=== PATIENT | male | born 1960 | race Caucasian/White ===

== ENCOUNTER 2022-01-09 16:23 | Inpatient (IN) | payer MEDICAID, SELFPAY ==
[~2022-01-09] VITALS: Ht 175.3 cm; Wt 108.9 kg
[~2022-01-09 16:23] MED LIST: ASPI-859 PO; LIP40 PO; LISI2.5T48 PO; METF-518 PO; MULT-1238 PO
[2022-01-09 16:25] VITALS: BP_SYST 173
--- NOTE | 2022-01-09 16:25 | NUR ---
Placed in room H1 . Placed on hydrometallurgical engineer, blood pressure machine and pulse oximeter. To gown for exam. Side rails up.
--- NOTE | 2022-01-09 16:28 | NUR ---
ER DR. EUCEDA AT THE BEDSIDE EXAMINING PT
--- NOTE | 2022-01-09 16:30 | NUR ---
PT BIB FROM HOME C/O LEFT SIDED FACIAL DROOP, SLURRED SPEECH, LEFT ARM AND LEFT LEG WEAKNESS. LKWT 2030 ON 01/08/22. PT IS AAOX4, VSS. PT HAS HX OF SIMILAR SYMPTOMS ON 12/26/21. HX OF DM, HTN
--- NOTE | 2022-01-09 16:45 | NUR ---
# 20 gauge angiocath placed to LAC. Use of asceptic technique. Opsite placed over site. Blood return noted. Blood for lab drawn from site. Flushed with 10 cc of normal saline. No evidence of infiltration noted. Patient tolerated well.
--- NOTE | 2022-01-09 16:50 | NUR ---
Patient transported to radiology via GURNEY, accompanied by STAFF.
[2022-01-09] MEDS ORDERED: IOHEXOL 350 mgI/mL, 150 ML INFUS..BTL IV ONE (16:51)
[2022-01-09 17:33] LABS: BASOPHILS % (AUTO) 0.6 % (0.0-2.0); EOSINOPHILS # (AUTO) 0.1 K/uL (0.0-0.4); EOSINOPHILS % (AUTO) 1.4 % (0.0-4.0); HEMATOCRIT 40.5 % (36-54); HEMOGLOBIN 13.7 g/dL (14.0-18.0); LYMPHOCYTES # (AUTO) 1.6 K/uL (1.0-5.5); LYMPHOCYTES % (AUTO) 28.1 % (20.5-51.5); MEAN CORPUSCULAR HEMOGLOBIN 29 pg (27-31); MEAN CORPUSCULAR HGB CONC 34 % (32-36); MEAN CORPUSCULAR VOLUME 84 fL (79.0-98.0); MONOCYTES # (AUTO) 0.4 K/uL (0.0-1.0); MONOCYTES % (AUTO) 6.9 % (1.7-9.3); NEUTROPHILS # (AUTO) 3.7 K/uL (1.8-7.7); PLATELET COUNT (AUTO) 203 K/uL (130-430); RED BLOOD CELL COUNT(AUTO) 4.81 MIL/uL (4.2-6.2); RED CELL DISTRIBUTION WIDTH 13.3 % (9.0-15.0); WHITE BLOOD COUNT (AUTO) 5.9 K/uL (4.8-10.8)
[2022-01-09 17:42] LABS: BILIRUBIN,URINE NEGATIVE (NEGATIVE); BLOOD, URINE NEGATIVE (NEGATIVE); CLARITY/URINE CLEAR (CLEAR); COLOR,URINE YELLOW (YELLOW); GLUCOSE,URINE 3+ (NEGATIVE); KETONES,URINE NEGATIVE (NEGATIVE); LEUKOCYTE ESTERASE ,URINE NEGATIVE (NEGATIVE); NITRITE, URINE NEGATIVE (NEGATIVE); PH,URINE 5.5 (5.0-8.0); PROTEIN URINE TRACE (NEGATIVE); UROBILINOGEN,URINE 0.2 (0.2-1.0)
[2022-01-09 17:46] LABS: CALCIUM 7.8 mg/dL (8.4-11.0); CREATININE 0.63 mg/dL (0.55-1.30); POTASSIUM 4.3 mmol/L (3.5-5.1)
[2022-01-09 17:47] LABS: INR 1.1 (0.80-1.20); PROTHROMBIN TIME 11.7 SECS (9.5-12.5)
[2022-01-09 17:57] LABS: BARBITURATE, URINE NEGATIVE (NEG <=200); BENZODIAZEPINE, URINE NEGATIVE (NEG <=150); CANNABINOID, URINE NEGATIVE (NEG <=50); COCAINE, URINE NEGATIVE (NEG <=150); METHAMPHETAMINES SCREEN,URINE NEGATIVE (NEG <=500); OPIATE, URINE NEGATIVE (NEG <=100); PHENCYCLIDINE SCREEN,URINE NEGATIVE (NEG <=25); UR TRICYCLIC ANTIDEPRESSANTS NEGATIVE (NEG <=300); URINE AMPHETAMINE NEGATIVE (NEG <=500); URINE METHADONE NEGATIVE (NEG <=200); URINE OXYCODONE SCREEN NEGATIVE (NEG <=100); URINE PROPOXYPHENE SCREEN NEGATIVE (NEG <=300)
[2022-01-09 17:58] LABS: WBC,URINE 0-3 /HPF (0-3)
--- NOTE | 2022-01-09 17:58 | NUR ---
Medication reconciliation completed with information provided by PATIENT. Any prior medication reconciliation on file was reviewed and corrected.
[2022-01-09 17:59] LABS: BACTERIA,URINE RARE /HPF (None Seen); MUCUS,URINE 1+ /LPF (None Seen)
[2022-01-09 17:59] LABS: ALBUMIN 3.1 g/dL (3.4-4.8); TOTAL BILIRUBIN 0.5 mg/dL (0.0-1.0)
--- NOTE | 2022-01-09 18:44 | NUR ---
COVID SWAB DONE AND SENT TO LAB
--- NOTE | 2022-01-09 19:18 | NUR ---
REPORT GIVEN TO VICKI BUNDY FOR CONTINUING CARE
--- NOTE | 2022-01-09 19:50 | NUR ---
SWAB COMPLETED FOR MRSA, TAKEN TO LAB.
--- NOTE | 2022-01-09 20:38 | NUR ---
PT REPOSITIONED TO RIGHT SIDE WITH OFFLOADING OF LEFT SIDE. PT RESTING IN BED IN LOW WOODRUFF'S POSITION, DOMESTIC PARTNER AT THE BEDISDE. WILL CONTINUE TO MONITOR.
[2022-01-09] MEDS ORDERED: HYDROcodone/ACETAMIN 5-325 MG TAB (NORCO/ VICODIN) PO PRN (21:15)
[2022-01-09] MEDS ORDERED: ALBUTEROL SULFATE 0.083% 2.5 MG/3 ML VIAL.NEB INH PRN (21:15)
[2022-01-09] MEDS ORDERED: ACETAMINOPHEN 325 MG TABLET PO PRN (21:15)
--- NOTE | 2022-01-09 22:16 | NUR ---
PT LIFTED UP IN BED WITH ASSISTANCE OF TECH WITH PILLOW AND REPOSITIONED WITH LEFT SIDE. [facility] [employer] [employer] MONITOR ON AND AT THE BEDSIDE, PT IN NO ACUTE DISTRESS. BED IN LOWEST POSITION, CALL LIGHT IN REACH, SIDE RAILS UP FOR SAFETY. PENDING ADMISSION, WILL CONTINUE TO MONITOR.
[2022-01-09] MEDS: NACL 0.9% 1,000 ML IV SCH (22:19)
[2022-01-09] MEDS: ASPIRIN 325 MG TABLET (ECOTRIN) PO SCH (22:19)
[2022-01-09] MEDS: CLOPIDOGREL BISULFATE 75 MG TABLET PO SCH (22:19)
--- NOTE | 2022-01-09 23:36 | NUR ---
PT IN BED RESTING EYES CLOSED, EASILY AROUSABLE TO VERBAL STIMULUS. [facility] [employer] ON AND AT THE BEDSIDE. PENDING ADMISSION.
[2022-01-10] VITALS (7 sets, daily range): BP systolic 125–145
--- NOTE | 2022-01-10 00:03 | NUR ---
PT ADMITTED TO ROOM 124B, REPORT GIVEN TO LOTUS FOR CONTINUITY OF CARE. PT ADMITTED WITH ALL BELONGINGS IN STABLE CONDITION. ALL QUESTIONS ANSWERED.
[2022-01-10] MEDS: INSULIN REGULAR, HUMAN 100 UNITS/ML, 10 ML VIAL (humuLIN R) SUBCUT PRN ×2 (01:09→06:19)
--- NOTE | 2022-01-10 01:20 | NUR ---
ADMIT 61 Y.O. MALE , LEFT SIDED WEAKNESS , LEFT SIDED FACIAL DROOP Patient is NPO skin intact awake and alert X 4 , procedures explained .
--- NOTE | 2022-01-10 05:40 | NUR ---
I SENT A MESSAGE TO DR. ALBARADO IN REGARD OF THE CONSULTATION
--- NOTE | 2022-01-10 06:03 | NUR ---
MRSA OF Nares collected & sent to Lab .
[2022-01-10 06:59] LABS: BASOPHILS % (AUTO) 0.7 % (0.0-2.0); EOSINOPHILS # (AUTO) 0.1 K/uL (0.0-0.4); EOSINOPHILS % (AUTO) 2.3 % (0.0-4.0); HEMOGLOBIN 14.1 g/dL (14.0-18.0); LYMPHOCYTES # (AUTO) 2.2 K/uL (1.0-5.5); LYMPHOCYTES % (AUTO) 34.4 % (20.5-51.5); MEAN CORPUSCULAR HEMOGLOBIN 29 pg (27-31); MEAN CORPUSCULAR HGB CONC 34 % (32-36); MEAN CORPUSCULAR VOLUME 84 fL (79.0-98.0); MONOCYTES # (AUTO) 0.4 K/uL (0.0-1.0); NEUTROPHILS # (AUTO) 3.6 K/uL (1.8-7.7); NEUTROPHILS % (AUTO) 56.6 % (40.0-70.0); PLATELET COUNT (AUTO) 196 K/uL (130-430); RED BLOOD CELL COUNT(AUTO) 4.89 MIL/uL (4.2-6.2); RED CELL DISTRIBUTION WIDTH 13.1 % (9.0-15.0); WHITE BLOOD COUNT (AUTO) 6.3 K/uL (4.8-10.8)
[2022-01-10 07:30] LABS: ALBUMIN 3.3 g/dL (3.4-4.8); CREATININE 0.62 mg/dL (0.55-1.30); POTASSIUM 4.4 mmol/L (3.5-5.1); TOTAL BILIRUBIN 0.6 mg/dL (0.0-1.0)
[2022-01-10] MEDS: ASPIRIN 325 MG TABLET (ECOTRIN) PO SCH (08:32)
[2022-01-10] MEDS: CLOPIDOGREL BISULFATE 75 MG TABLET PO SCH (08:32)
[2022-01-10] MEDS ORDERED: GLUCOSE (DEXTROSE) ORAL GEL -Adults PO PRN (09:15)
[2022-01-10] MEDS ORDERED: DEXTROSE 50%-WATER 50 ML DISP.SYRIN IVP PRN (09:15)
[2022-01-10] MEDS ORDERED: D5W 1,000 ML IV PRN (09:15)
[2022-01-10] MEDS: NACL 0.9% 1,000 ML IV SCH (10:35)
--- NOTE | 2022-01-10 10:55 | NUR ---
CONSULTATION PAGED REASON FOR CONSULTATION:[facility] WAS CONSULT CALLED?Y PERSON WHO WAS NOTIFIETEXT MESSAGED GONZALEZ BROCK CONSULTING PHYSICIAN: GONZALEZ BROCK CARDIOLOGY TEACHER SPECIALTY:NEURO CARDIOLOGY TEACHER PHONE NUMBER:[phone] REQUESTING PHYSICIAN:ARIES ALVARADO
--- NOTE | 2022-01-10 10:56 | NUR ---
CONSULTATION PAGED REASON FOR CONSULTATION:[facility] WAS CONSULT CALLED?Y PERSON WHO WAS NOTIFIED:RITO CONSULTING PHYSICIAN: JO ANN RODRÍGUEZ INSPECTOR GOVERNMENT PROPERTY SPECIALTY:CARDIO INSPECTOR GOVERNMENT PROPERTY PHONE NUMBER:[phone] REQUESTING PHYSICIAN:ARIES ALVARADO
--- NOTE | 2022-01-10 12:23 | NUR ---
Physical Therapy order received and chart reviewed. Nurse reports that the patient is having a stress test performed. Plan: attempt the evaluation tomorrow.
--- NOTE | 2022-01-10 16:54 | NUR ---
ST EVALUATION COMPLETED. ST TX NOT INDICATED AT THIS TIME. RECOMMEND PO DIET OF PUREE AND THIN LIQUIDS. DISTANT SUPERVISION FOR ASPIRATION PRECAUTIONS.
--- NOTE | 2022-01-10 17:00 | NUR ---
pt is alert, awake and oriented time four left upper extrem remains flaccid but sensation intact he is unable to balance himself when sitting up or when standing with assistance. overall appearances fair denies pain/discomfort sr on the monitor vss went for mri of the brain results inc. multifocal ischemic infarcts physician is aware also swallow eval was done pt on pureed diet with thin liquids florencio wellteaching reinforced with pt call for assist as needed call sinha at his side, comfort and safety maintained
--- NOTE | 2022-01-10 19:30 | NUR ---
opening note late entry d/t patient care Received patient awake, resting in bed, no distress. Nonlabored breathing on room air. He is talking w/ visitor at bedside. Bed is locked in lowest position, side rails up and bed alarm on. Reviewed use of call light and verbalized understanding.
--- NOTE | 2022-01-10 19:40 | NUR ---
Dr. Paez late entry d/t patient care Dr. Paez at bedside to see/eval patient.
--- NOTE | 2022-01-11 00:05 | NUR ---
V/S, Accucheck late entry d/t patient care V/S taken and stable, denies pain. Accucheck result of 205mg/dL and covered per sliding scale.
[2022-01-11] MEDS: INSULIN REGULAR, HUMAN 100 UNITS/ML, 10 ML VIAL (humuLIN R) SUBCUT PRN ×4 (00:06→18:28)
[2022-01-11 00:25] VITALS: BP_SYST 143
[2022-01-11] MEDS: NACL 0.9% 1,000 ML IV SCH ×2 (04:36→13:15)
--- NOTE | 2022-01-11 06:20 | NUR ---
OOB -restroom late entry d/t patient care. Patient was assisted to restroom with use of FWW. He reports a bowel movement. Returned to bed and SCD's on. Bed alarm on and call light w/in reach. Accucheck done w/result of 164mg/dL.
[2022-01-11] MEDS ORDERED: ATORVASTATIN 20 MG TABLET PO SCH (09:00)
[2022-01-11] MEDS: CLOPIDOGREL BISULFATE 75 MG TABLET PO SCH (09:38)
[2022-01-11] MEDS: ASPIRIN 325 MG TABLET (ECOTRIN) PO SCH (09:39)
[2022-01-11 12:38] VITALS: BP_SYST 140
[2022-01-11 16:58] VITALS: BP_SYST 142
--- NOTE | 2022-01-11 19:17 | NUR ---
patient is for transfer at [facility], give report to receiving Nurse, endorsed patient to night warehouse manager RN estimated grape picker @ 8 pm.
[2022-01-11 19:43] VITALS: BP_SYST 159
--- NOTE | 2022-01-11 20:17 | NUR ---
PT TRANSFERRED/DISCHARGE Report given by day shift nurse to facility at [place]. Transfer packet with Transfer Orders and Medication Reconciliation form given to EMT Flora from [facility] with report. Exitcare provided. [facility] ID band removed, replaced with ID band with pt's name and . IV catheter removed, intact and dressing applied, no active bleeding. All belongings sent with patient. Patient left floor via gurney escorted by EMT in no distress.
== END 2022-01-11 20:17 | DRG 45 ==
LOC: SED 16:23 → STU 21:04
PROVIDERS: ADMIT Internal Medicine Hospice and Palliative Medicine; ATTEND Internal Medicine Hospice and Palliative Medicine
DX: I63.9 Cerebral infarction, unspecified (principal); G81.04 Flaccid hemiplegia affecting left nondominant side; E11.9 Type 2 diabetes mellitus without complications; I10 Essential (primary) hypertension; E66.9 Obesity, unspecified; R29.810 Facial weakness; E78.5 Hyperlipidemia, unspecified; Z20.822 Contact with and (suspected) exposure to COVID-19; Z86.73 Personal history of transient ischemic attack (TIA), and cerebral infarction without residual deficits; Z79.4 Long term (current) use of insulin; Z79.84 Long term (current) use of oral hypoglycemic drugs; Z79.899 Other long term (current) drug therapy; Z82.3 Family history of stroke; Z93.3 Colostomy status; Z68.35 Body mass index [BMI] 35.0-35.9, adult
CPT/HCPCS: 36415; 70450-TC; 70496; 70498; 70551; 71045; 76376; 80048; 80053; 80307; 81000; 82962; 84484; 85025; 85610-TC; 85730-TC; 86886; 86900; 86901; 87081; 92610-GN; 93005; 97163-GP; 99291; G0378; J1815; Q9967

== ENCOUNTER 2022-04-29 18:28 | Inpatient (IN) | payer MEDICAID ==
[~2022-04-29] VITALS: Ht 165.1 cm; Wt 98.9 kg
[~2022-04-29 18:28] MED LIST changes: -ASPI-859 PO; +Aspirin Ec PO; +CLOP75TA32 PO; +LIP20 PO; -LIP40 PO; +LISI-209 PO; -LISI2.5T48 PO; +METF-380 PO; -METF-518 PO; -MULT-1238 PO
[2022-04-29 18:31] VITALS: BP_SYST 121
--- NOTE | 2022-04-29 19:19 | NUR ---
61 YR OLD AOX4 MALE WITH A COMPLAINT OF SUICIDAL IDEATION. PT WRAPPED CORD AROUND HIS NECK. PER SPOUSE PT HAS TRIED VARIOUS WAYS TO HURT HIMSELF. PT STATES HE HAS LOST THE WILL TO LIVE DUE TO RECENT CVA. PT IS CALM, AND STATES HE NEEDS HELP. MD AT THE BEDSIDE. PATIENT PLACED ON SUICIDE PRECAUTION, WILL MONITOR CLOSELY.
--- NOTE | 2022-04-29 19:19 | NUR ---
covid19 rico antigen done at bedside and sent to lab
[2022-04-29 19:25] LABS: BASOPHILS % (AUTO) 0.3 % (0.0-2.0); EOSINOPHILS % (AUTO) 0.3 % (0.0-4.0); HEMATOCRIT 41.7 % (36-54); HEMOGLOBIN 14.6 g/dL (14.0-18.0); LYMPHOCYTES # (AUTO) 1.3 K/uL (1.0-5.5); LYMPHOCYTES % (AUTO) 12.5 % (20.5-51.5); MEAN CORPUSCULAR HEMOGLOBIN 30 pg (27-31); MEAN CORPUSCULAR HGB CONC 35 % (32-36); MEAN CORPUSCULAR VOLUME 86 fL (79.0-98.0); MONOCYTES # (AUTO) 0.7 K/uL (0.0-1.0); MONOCYTES % (AUTO) 6.3 % (1.7-9.3); NEUTROPHILS # (AUTO) 8.4 K/uL (1.8-7.7); NEUTROPHILS % (AUTO) 80.6 % (40.0-70.0); PLATELET COUNT (AUTO) 307 K/uL (130-430); RED BLOOD CELL COUNT(AUTO) 4.88 MIL/uL (4.2-6.2); RED CELL DISTRIBUTION WIDTH 14.5 % (9.0-15.0); WHITE BLOOD COUNT (AUTO) 10.4 K/uL (4.8-10.8)
[2022-04-29 19:31] LABS: ANION GAP 9 (5-15); CALCIUM 9.4 mg/dL (8.4-11.0); CHLORIDE 93 mmol/L (98-107); CREATININE 0.68 mg/dL (0.55-1.30); GFR AFRICAN AMERICAN 151 mL/min (>90); GLUCOSE 180 mg/dL (70-99); POTASSIUM 3.6 mmol/L (3.5-5.1); SODIUM SERUM 133 mmol/L (136-145); TOTAL BILIRUBIN 0.6 mg/dL (0.0-1.0); UREA NITROGEN, BLOOD 9 mg/dL (8-21)
[2022-04-29 19:32] LABS: ACETAMINOPHEN < 1 ug/mL (1-30); ALANINE AMINOTRANSFERASE 26 U/L (12-78); ALBUMIN 3.2 g/dL (3.4-4.8); ALCOHOL, BLOOD < 3 mg/dL (<10); ASPARTATE AMINOTRANSFERASE 18 U/L (10-37)
[2022-04-29] MEDS ORDERED: MAG HYDROX/AL HYDROX/SIMETH 30 ML, DICYCLOMINE HCL 20 MG, LIDOCAINE VISCOUS 2% 15ML (PO... PO ONE ×3 (20:00)
--- NOTE | 2022-04-29 22:09 | NUR ---
PT WENT HOME, PT EYES CLOSED AND IS ASLEEP. CAMERA IS ON FOR CONSTANT VISUAL MONITORING. WILL MONITOR CLOSELY
--- NOTE | 2022-04-29 23:51 | NUR ---
Pt's packet faxed to the following psychiatric facilities for placement: [facility] Awaiting reply.
--- NOTE | 2022-04-30 02:49 | NUR ---
pt awake, requesting medication for acid reflux. MD Bowser aware. pt remains on suicide precautions. will visually monitor frequently
[2022-04-30] MEDS ORDERED: PANTOPRAZOLE SODIUM 40 MG TAB PO ONE (04:15)
[2022-04-30] MEDS ORDERED: PANTOPRAZOLE SODIUM 40 MG/VIAL (PROTONIX) IVP ONE (04:15)
[2022-04-30] MEDS ORDERED: METOCLOPRAMIDE HCL 10 MG/2 ML VIAL IM ONE (04:15)
[2022-04-30] MEDS ORDERED: METOCLOPRAMIDE HCL 10 MG/2 ML VIAL IVP ONE (04:15)
--- NOTE | 2022-04-30 04:34 | NUR ---
pt repositioned in bed, left side placed on pillows for off loading to assist with comfort. pt is on sucide precautions,. pending psych evaluation. will monitor very closely
--- NOTE | 2022-04-30 07:06 | NUR ---
report provided to VICKI Rivera. pt pending psych evaluation
[2022-04-30] MEDS ORDERED: MAG HYDROX/AL HYDROX/SIMETH 30 ML, DICYCLOMINE HCL 20 MG, LIDOCAINE VISCOUS 2% 15ML (PO... PO ONE ×3 (14:30)
--- NOTE | 2022-04-30 19:20 | NUR ---
RECIEVED RPRT FROM OUTIN RN/ PT IN ROOM WITH AT BEDSIDE. PT VITALS ARE WITHIN NORMAL LIMITS. PT WILL LIKE SOMETHING TO SLEEP. WILL ADV . PT IS A0X4 DENIES PAIN. PT IN BED RESTING WITH BED LOWERED, LOCKED AND RAIL UP. WILL CONTINUE TO MONITOR
--- NOTE | 2022-04-30 19:21 | NUR ---
SBAR TO MONTEZ COHEN. PT VSS. NAD NOTED. AWAITING POSSIBLE PLACEMENT VS. ADMIT PER MD DILLON. END OF CARE.
[2022-04-30] MEDS ORDERED: HYOSCYAMINE SULFATE 0.125 MG TABLET PO ONE (23:00)
[2022-04-30] MEDS ORDERED: PROCHLORPERAZINE EDISYLATE 10 MG/2 ML VIAL IM ONE (23:00)
[2022-04-30] MEDS ORDERED: MAG-AL HYDROX/SIMETH 30 ML UDC PO ONE (23:00)
[2022-04-30] MEDS ORDERED: LIDOCAINE VISCOUS 2%, 15 ML UDC MM ONE (23:00)
[2022-05-01] MEDS ORDERED: HALOPERIDOL LACTATE 5 MG/ML VIAL IM ONE
[2022-05-01] MEDS ORDERED: DIPHENHYDRAMINE INJ 50 MG/ML VIAL IM ONE
--- NOTE | 2022-05-01 08:00 | NUR ---
Report received from Graham COHEN. Pt has cc of psychiatric d/o with suicide ideation. According to previous RN pt endorses SI and made an attempt. Pt currently on 5150 hold and is on 1:1 observation. Pt currently laying in gurney and calm and cooperative, resp e/u, chest rise and fall are symmetric. NADN. Will continue to monitor.
--- NOTE | 2022-05-01 08:05 | NUR ---
Pt room found with about 4-6oz of dark red emesis.
--- NOTE | 2022-05-01 09:58 | NUR ---
Family at bedside.
[2022-05-01] MEDS ORDERED: MAG HYDROX/AL HYDROX/SIMETH 30 ML, LIDOCAINE VISCOUS 2% 15ML (PO) 15 ML, DICYCLOMINE HC... PO ONE ×3 (10:45)
--- NOTE | 2022-05-01 10:56 | NUR ---
is at bedside.
[2022-05-01] MEDS ORDERED: PANTOPRAZOLE SODIUM 40 MG TAB PO ONE (14:00)
[2022-05-01] MEDS ORDERED: ONDANSETRON 4 MG ODT TAB PO ONE (15:00)
[2022-05-01] MEDS ORDERED: NACL 0.9% 1,000 ML IV ONE (15:45)
[2022-05-01] MEDS ORDERED: ONDANSETRON HCL 4 MG/2 ML VIAL IVP ONE (15:45)
[2022-05-01 16:09] LABS: BASOPHILS % (AUTO) 0.1 % (0.0-2.0); HEMATOCRIT 47.1 % (36-54); HEMOGLOBIN 16.5 g/dL (14.0-18.0); LYMPHOCYTES # (AUTO) 0.6 K/uL (1.0-5.5); MEAN CORPUSCULAR HEMOGLOBIN 30 pg (27-31); MEAN CORPUSCULAR HGB CONC 35 % (32-36); MEAN CORPUSCULAR VOLUME 86 fL (79.0-98.0); MONOCYTES # (AUTO) 0.7 K/uL (0.0-1.0); MONOCYTES % (AUTO) 4.7 % (1.7-9.3); NEUTROPHILS # (AUTO) 13.2 K/uL (1.8-7.7); NEUTROPHILS % (AUTO) 91.2 % (40.0-70.0); PLATELET COUNT (AUTO) 302 K/uL (130-430); RED CELL DISTRIBUTION WIDTH 14.4 % (9.0-15.0); WHITE BLOOD COUNT (AUTO) 14.5 K/uL (4.8-10.8)
[2022-05-01 16:16] LABS: CALCIUM 9.7 mg/dL (8.4-11.0); CREATININE 1.35 mg/dL (0.55-1.30); POTASSIUM 3.5 mmol/L (3.5-5.1)
[2022-05-01 16:23] LABS: ALBUMIN 3.4 g/dL (3.4-4.8); TOTAL BILIRUBIN 0.8 mg/dL (0.0-1.0)
[2022-05-01] MEDS ORDERED: D5/0.45 NS 1,000 ML IV SCH (18:45)
[2022-05-01] MEDS ORDERED: LORazepam 2 MG/ML VIAL IVP PRN (21:15)
[2022-05-01] MEDS ORDERED: ACETAMINOPHEN 325 MG TABLET PO PRN (21:15)
[2022-05-01] MEDS ORDERED: ONDANSETRON HCL 4 MG/2 ML VIAL IVP PRN (21:15)
--- NOTE | 2022-05-01 23:50 | NUR ---
pt in bed resting comfortably with bed lowered, locked and rails up. will continue to monitor
--- NOTE | 2022-05-02 02:11 | NUR ---
DR. STAPLES IS AWARE OF CONSULT
[2022-05-02 06:54] LABS: BASOPHILS % (AUTO) 0.1 % (0.0-2.0); HEMATOCRIT 44.5 % (36-54); HEMOGLOBIN 15.5 g/dL (14.0-18.0); LYMPHOCYTES % (AUTO) 6.8 % (20.5-51.5); MEAN CORPUSCULAR HEMOGLOBIN 30 pg (27-31); MEAN CORPUSCULAR HGB CONC 35 % (32-36); MEAN CORPUSCULAR VOLUME 86 fL (79.0-98.0); MONOCYTES # (AUTO) 0.8 K/uL (0.0-1.0); MONOCYTES % (AUTO) 5.7 % (1.7-9.3); NEUTROPHILS # (AUTO) 12.2 K/uL (1.8-7.7); NEUTROPHILS % (AUTO) 87.4 % (40.0-70.0); PLATELET COUNT (AUTO) 299 K/uL (130-430); RED CELL DISTRIBUTION WIDTH 14.4 % (9.0-15.0)
--- NOTE | 2022-05-02 07:18 | NUR ---
gave rprt to regina
--- NOTE | 2022-05-02 07:22 | NUR ---
pt rtesing in bed ,appears to be in no acute distress noted at this time, positioned for comfort, pending placement.
[2022-05-02 08:13] LABS: CALCIUM 9.1 mg/dL (8.4-11.0); CREATININE 1.21 mg/dL (0.55-1.30); PHOSPHORUS 3.1 mg/dL (2.7-4.5); POTASSIUM 3.2 mmol/L (3.5-5.1)
--- NOTE | 2022-05-02 08:33 | NUR ---
placed pt in a hospital bed from [facility]
--- NOTE | 2022-05-02 08:35 | NUR ---
Admit bed requested Patient will be admitted to care of . Admitted to MED/SURG unit. Diagnosis DEHYDRATION/SI Inpatient (Yes or No) YES Observation (Yes or No) NO Orientation concerns or request close to nursing station (Yes or No) YES Covid Status NEG On vent or bipap NO Isolation requirements NO Needs a sitter YES From Home (Yes or if No enter name of facility) HOME Requires Dialysis (Yes or No) NO Med Rec Completed (Yes of No) DONE
[2022-05-02] MEDS: ASPIRIN 81 MG TABLET(ECOTRIN) PO SCH (09:00)
[2022-05-02] MEDS: CLOPIDOGREL BISULFATE 75 MG TABLET PO SCH (09:00)
--- NOTE | 2022-05-02 09:15 | NUR ---
social worker clinical at bedside at this time
--- NOTE | 2022-05-02 10:28 | NUR ---
SITTER AT BEDSIDE PROVIDING 11/19 OBSERVATION
--- NOTE | 2022-05-02 11:24 | NUR ---
AT BEDSIDE AT THIS TIME, FEEDING HIM APPLESAUCE, STATED SHE WANTS A DIAPER ON HIM, UDATED HER ON THE PLAN AND CHECKED BLOODSUGAR 365.
[2022-05-02] MEDS: INSULIN REGULAR, HUMAN 100 UNITS/ML, 10 ML VIAL (humuLIN R) SUBCUT PRN ×3 (11:34→23:55)
[2022-05-02] MEDS ORDERED: INSULIN REGULAR, HUMAN 10 UNITS/0.1 ML INJ ONE ×2 (11:36→18:30)
--- NOTE | 2022-05-02 11:47 | NUR ---
DR SILVEIRA AT BEDSIDE AT THIS TIME
--- NOTE | 2022-05-02 13:35 | NUR ---
Pt. swabbed for COVID. Sent to lab.
--- NOTE | 2022-05-02 13:37 | NUR ---
Food Beverage Supervisor PHOTOVOLTAIC TECHNICIAN retrieved the pscy hold, included it in a packet and sent packet to [facility]. PHOTOVOLTAIC TECHNICIAN called [facility], they do not have any beds. PHOTOVOLTAIC TECHNICIAN called [facility], spoke to Padmini, who stated she needs an updated Covid and to know pts. ADL, if he is independent, moderate assist, etc.
--- NOTE | 2022-05-02 13:51 | NUR ---
ASIF (CM) [id number] CALLED@ THIS TIME
--- NOTE | 2022-05-02 14:08 | NUR ---
COVID POSITIVE AT THIS TIME
[2022-05-02] MEDS: NACL 0.9% 1,000 ML IV SCH ×2 (14:15→22:07)
[2022-05-02] MEDS: KCL 20 mEq in 100 mL (PREMIX) 100 ML IV SCH ×2 (14:30→22:05)
--- NOTE | 2022-05-02 18:38 | NUR ---
POTASSIUM STARTED AT 1830 WILL END AT 2030
--- NOTE | 2022-05-02 20:31 | NUR ---
pt in hospital bed in private room with sitter at bedside. pt stated he feels "down" today. when asked about si/hi, pt denies states "not at all" today. nad noted at this time vss.
--- NOTE | 2022-05-02 20:54 | NUR ---
report given to althea mariano
[2022-05-02] MEDS ORDERED: KCL 20 mEq in 100 mL (PREMIX) 100 ML IV ONE (20:59)
[2022-05-02 21:20] VITALS: BP_SYST 124
--- NOTE | 2022-05-02 21:20 | NUR ---
ADMITTED FROM ER VIA BED ON ROOM AIR AWAKE AND ALERT,5150 HOLD FOR 1:1 OBSERVATION FOR MS IN PATIENT COVID PT,ON ROOM AIR NO RESP DISTRESS, HEMIPARESIS WEAKNESS ON LT SIDE MORE ON UPPER BODY,LT LEG HAS MILD MOVEMENT BUT DRIFT, ON DIET,AND IVF ,SKIN INTACT RT AC PIVC,CHG BATH GIVEN, V/S STABLE. AFEBRILE.
[2022-05-02 21:30] VITALS: BP_SYST 126
[2022-05-02 22:00] VITALS: BP_SYST 116
--- NOTE | 2022-05-02 22:00 | NUR ---
DUE K-RIDER GIVEN,AND DUE ORAL MEDS ABLE TO SWALLOW PILLS. NO SUICIDAL IDEATION, VOIDS TO URINAL.
[2022-05-02] MEDS: ATORVASTATIN 20 MG TABLET PO SCH (22:06)
[2022-05-02] MEDS: lisinopriL 5 MG TABLET PO SCH (22:06)
[2022-05-03] VITALS (11 sets, daily range): BP systolic 95–139
[2022-05-03 06:17] LABS: BASOPHILS % (AUTO) 0.3 % (0.0-2.0); EOSINOPHILS % (AUTO) 0.2 % (0.0-4.0); HEMATOCRIT 39.6 % (36-54); HEMOGLOBIN 13.8 g/dL (14.0-18.0); LYMPHOCYTES # (AUTO) 2.1 K/uL (1.0-5.5); MEAN CORPUSCULAR HEMOGLOBIN 30 pg (27-31); MEAN CORPUSCULAR HGB CONC 35 % (32-36); MEAN CORPUSCULAR VOLUME 85 fL (79.0-98.0); MONOCYTES # (AUTO) 0.8 K/uL (0.0-1.0); MONOCYTES % (AUTO) 7.9 % (1.7-9.3); NEUTROPHILS # (AUTO) 7.4 K/uL (1.8-7.7); NEUTROPHILS % (AUTO) 71.6 % (40.0-70.0); PLATELET COUNT (AUTO) 269 K/uL (130-430); RED BLOOD CELL COUNT(AUTO) 4.65 MIL/uL (4.2-6.2); RED CELL DISTRIBUTION WIDTH 14.1 % (9.0-15.0); WHITE BLOOD COUNT (AUTO) 10.4 K/uL (4.8-10.8)
[2022-05-03] MEDS: INSULIN REGULAR, HUMAN 100 UNITS/ML, 10 ML VIAL (humuLIN R) SUBCUT PRN ×3 (06:45→21:14)
[2022-05-03 07:07] LABS: ALBUMIN 2.6 g/dL (3.4-4.8); C-REACTIVE PROTEIN QUANT 2.4 mg/dL (0-0.5); CALCIUM 7.8 mg/dL (8.4-11.0); CREATININE 0.81 mg/dL (0.55-1.30); PHOSPHORUS 2.2 mg/dL (2.7-4.5); POTASSIUM 3.2 mmol/L (3.5-5.1); TOTAL BILIRUBIN 0.8 mg/dL (0.0-1.0)
--- NOTE | 2022-05-03 07:15 | NUR ---
RECEIVED PT FROM VICKI WATKINS. ASSUMED ALL CARE. PT IS AAOX4. DENIES SUICIDAL IDEATION. ON ONE TO ONE SUPERVISION FOR RISK TO SELF AND S/P ATTEMPTED SUICIDE. TELEMONITOR IN PLACE READING NSR. RESP E/U, LUNG SOUNDS CTA. ON R/A. NO COUGH OR SOB. PT ON DROPLET PRECAUTIONS FOR COVID POSITIVE. ABDOMEN SOFT, NONTENDER, NONDISTENDED. BOWEL SOUNDS ACTIVE X4 QUADS. DENIES N/V/D/C. SKIN CDI, INTACT, NO EDEMA, CAP REFILL < 3 SECS. PT HAD I CATH TO RAC WITH NS RUNNING AT 75ML/HOUR. SITE WNL, DRESSING CDI. PT DENIES PAIN. CALL LIGHT WITHIN REACH. BED IN LOWEST POSITION.
[2022-05-03] MEDS: ASPIRIN 81 MG TABLET(ECOTRIN) PO SCH (08:24)
[2022-05-03] MEDS: CLOPIDOGREL BISULFATE 75 MG TABLET PO SCH (08:24)
--- NOTE | 2022-05-03 08:46 | NUR ---
SCHEDULED MEDS GIVEN. BEDSIDE SWALLOW EVAL SHOWS PT SWALLOWS WELL WITH NO COUGH ON THIN LIQUIDS. PT DENIES PAIN. ASSISTED WITH BREAKFAST SET UP. PT DENIES PAIN. ENDORSED ALL CARE TO VICKI PATTERSON WHO ASSUMED CARE OF PT FOR THE REST OF DAY SHIFT.
[2022-05-03 09:59] LABS: ERYTHROCYTE SEDIMENTATION RATE 23 MM/HR (0-15)
--- NOTE | 2022-05-03 14:57 | NUR ---
Historical Interpreter DATA BASE DESIGN ANALYST spoke to KATHY Zamarripa who stated according to the Rn. Pt. is no longer suicidal and asked for Dr. Cordero to come back in to do a reassessment and medically clears him, DATA BASE DESIGN ANALYST could place pt. at [facility] . They have a red zone for Covid positive pts.
--- NOTE | 2022-05-03 15:44 | NUR ---
RECEIVED PT BACK FROM VICKI CAMERON. ASSUMED ALL CARE.
--- NOTE | 2022-05-03 16:16 | NUR ---
GLUCOPHAGE HELD, PT NPO FOR SWALLOW EVAL, PT HAS POOR MEMORY, AND REPEATS QUESTIONS.
--- NOTE | 2022-05-03 17:07 | NUR ---
ST EVALUATION COMPLETED. ST TX NOT INDICATED AT THIS TIME. RECOMMEND PO DIET OF PUREE/THIN LIQUID DUE TO PT BITING CHEEKS DURING MASTICATION OF TEXTURED FOODS. DISTANT SUPERVISION AND FULL ASPIRATION PRECAUTIONS.
--- NOTE | 2022-05-03 17:45 | NUR ---
CONSULT: DR. RADHA GARCIA HERE FOR CONSULT/ PSYCH. CLEARANCE.
--- NOTE | 2022-05-03 17:54 | NUR ---
RN NOTES PER DR. GARCIA, PATIENT IS CLEAR TO GO TO A PSYCH FACILITY. ([facility])
[2022-05-03] MEDS: NACL 0.9% 1,000 ML IV SCH (18:23)
--- NOTE | 2022-05-03 19:01 | NUR ---
PT GOWN AND LINEN CHANGED, PCR OBTAINED.
--- NOTE | 2022-05-03 19:18 | NUR ---
ENDORSED ALL CARE TO VICKI WATKINS. ALL QUESTIONS AND CONCERNS ADDRESSED.
[2022-05-03] MEDS: ATORVASTATIN 20 MG TABLET PO SCH (20:19)
[2022-05-03] MEDS: lisinopriL 5 MG TABLET PO SCH (20:20)
[2022-05-04] VITALS (8 sets, daily range): BP systolic 104–136
[2022-05-04] MEDS: NACL 0.9% 1,000 ML IV SCH ×2 (05:59→19:35)
[2022-05-04] MEDS: INSULIN REGULAR, HUMAN 100 UNITS/ML, 10 ML VIAL (humuLIN R) SUBCUT PRN ×2 (06:01→17:51)
--- NOTE | 2022-05-04 06:07 | NUR ---
ALL CARES DONE, LINEN CHNAGED AND SKIN CARE DONE CHG BATH DONE, VSS, AFEBRILE REMAINS ASYMPTOMATIC.CONT CARE.
[2022-05-04] MEDS: CLOPIDOGREL BISULFATE 75 MG TABLET PO SCH (08:27)
[2022-05-04] MEDS: ASPIRIN 81 MG TABLET(ECOTRIN) PO SCH (08:28)
--- NOTE | 2022-05-04 11:04 | NUR ---
ON DUTY RECEIVED THIS PT A/OX4, VS STABLE. PT WAS OUT OF 5150 HOLD. PT WAS QUIET AND COOPERATIVE. MORNING ROUND DONE. PT PROBABLY D/C HOME.
--- NOTE | 2022-05-04 14:54 | NUR ---
PT URINATED ALL OVER THE BED. WITH OTHER NURSE ASSISTANCE, LINEN CHANGED, PT WAS CLEANED. TRIED TO FEED PT WITH LUCH. BUT PT UNABLE TO SWALLOW THEN PT VOMITED OUT. DISCUSSED WITH MANUEL, THE CHARGE NURSE. SHE WILL ORDER THE OTHER SWALLOW EVAL.
--- NOTE | 2022-05-04 15:54 | NUR ---
PT WAS ADMITED TO MS. PUSHED BED TO 133. REPORT WAS ENDORSED TO RICHARD. COHEN.
--- NOTE | 2022-05-04 18:04 | NUR ---
P.T. NOTES P.T. EVAL COMPLETED; REFER TO EVAL FOR DETAILS.
--- NOTE | 2022-05-04 20:00 | NUR ---
RECEIVED REPORT FROM OUTGOING NURSE, AOX1, PT ASLEEP IN BED,DENIES PAIN, NO S/S OF DISTRESS AND DISCOMFORT NOTED, BREATHING EVEN AND UNLABORED, SATURATION ON ROOM AIR, VSS, URINAL WITHIN REACH, CALL LIGHT WITHIN REACH, BED IN LOWEST POSITION, PT REPOSITIONS PER COMFORT, WILL CONTINUE TO MONITOR FOR ANY CHANGES IN CONDITION
[2022-05-04] MEDS: ATORVASTATIN 20 MG TABLET PO SCH (21:25)
[2022-05-04] MEDS: lisinopriL 5 MG TABLET PO SCH (21:25)
[2022-05-05] VITALS: BP_SYST 130
--- NOTE | 2022-05-05 | NUR ---
PT AWAKE, CONFUSED, STATING THE NURSE SHOULD CALL 911, WANTS TO GO TO ANOTHER HOSPITAL, AND THAT HE HAS MANY NURSE, TRYING TO CLIMB OUT OF BED, BED EXIT ALARM ON, ATIVAN PRN GIVEN FOR AGITATION, WILL CONTINUE TO MONITOR.
--- NOTE | 2022-05-05 06:39 | NUR ---
PT RESTING COMFORTABLY IN BED ASLEEP, BS 100 CHECKED, NO S/S OF DISTRESS OR DISCOMFORT NOTED, BREATHING EVEN AND UNLABORED, REPOSITIONED PER COMFORT, WILL CONTINUE TO MONITOR.
--- NOTE | 2022-05-05 07:23 | NUR ---
SHIFT CHANGE REPORT GIVEN TO KORY RN FOR CONTINUITY OF CARE, ALL QUESTIONS WERE ANSWERED AND RN VERBALIZED UNDERSTANDING.
[2022-05-05] MEDS: NACL 0.9% 1,000 ML IV SCH ×2 (08:55→21:54)
[2022-05-05] MEDS: CLOPIDOGREL BISULFATE 75 MG TABLET PO SCH (09:00)
[2022-05-05] MEDS: ASPIRIN 81 MG TABLET(ECOTRIN) PO SCH (09:00)
[2022-05-05 12:00] VITALS: BP_SYST 127
[2022-05-05 16:51] VITALS: BP_SYST 129
--- NOTE | 2022-05-05 19:15 | NUR ---
OPENING NOTE REPORT RECEIVED FROM DAYSHIFT NURSE. PATIENT RECEIVED LYING IN BED, AWAKE, ALERT, NO S/S OF ACUTE DISTRESS, DENIES PAIN. BREATHING EVEN AND UNLABORED. NO IV SITE. BED ALARM ON. BED IS LOCKED AND AT LOWEST POSITION. CALL LIGHT WITH PATIENT, DEMONSTRATED BACK PROPER USE. WILL CONTINUE TO MONITOR.
[2022-05-05 20:00] VITALS: BP_SYST 130
--- NOTE | 2022-05-05 21:00 | NUR ---
INCONTINENT CARE/REFUSE IV PATIENT CLEANED BY RN AND PAPERHANGER. PATIENT TOLERATED WELL. PATIENT ENCOURAGED TO HAVE IV INSERTED, PATIENT REFUSING AT THIS TIME, STATING HE WANTS IT DONE TOMORROW. EDUCATED ON PURPOSE AND BENEFIT, BUT PATIENT STILL REFUSING. WILL CONTINUE TO ENCOURAGE THROUGHOUT SHIFT. CALL LIGHT WITH PATIENT. BED ALARM ON. WILL CONTINUE TO MONITOR.
[2022-05-05] MEDS: ATORVASTATIN 20 MG TABLET PO SCH (21:53)
[2022-05-05] MEDS: lisinopriL 5 MG TABLET PO SCH (21:53)
--- NOTE | 2022-05-05 23:00 | NUR ---
INCONTINENT CARE/REFUSE IV PATIENT CLEANED AT THIS TIME. TOLERATED WELL. ALL NEEDS MET. PATIENT STILL REFUSING IV INSERTION. STATES HE WANTS IT DONE TOMORROW WHEN I (RN) COME BACK.
[2022-05-06] VITALS: BP_SYST 128
--- NOTE | 2022-05-06 00:57 | NUR ---
Admission Note Received patient from ER with diagnosis of acute gastritis. Initial Plan of Care discussed-patient verbalized understanding. Family at bedside. Oriented to room, call light, pain management and safety. Addendum: 05/06/22 at 0317 by [employer] slicing machine operator DISREGARD NOTE ABOVE, INPUT FOR WRONG PATIENT.
--- NOTE | 2022-05-06 06:29 | NUR ---
CLOSING NOTE PATIENT IN BED, RESTING, NO S/S OF ACUTE DISTRESS NOTED. BREATHING EVEN AND UNLABORED. SKIN WARM AND DRY TO TOUCH, NO SIGNS OF HYPOGLYCEMIA NOTED. ALL NEEDS MET THROUGHOUT SHIFT. FALL, SAFETY, AND ISOLATION PRECAUTIONS MAINTAINED THROUGHOUT SHIFT. WILL CONTINUE TO MONITOR UNTIL PATIENT CARE IS ENDORSED TO ONCOMING DAYSHIFT NURSE.
[2022-05-06 08:00] VITALS: BP_SYST 139
--- NOTE | 2022-05-06 08:00 | NUR ---
PATIENT LYING IN BED QUIETLY. PT DENIES ANY SUICIDAL IDEATIONS. HIS SPEECH IS CLEAR AND COHERENT. HE IS AWARE OF CIRCUMSTANCES OF HIS ADMISSION. HE WAS ABLE TO GIVE ME AN ACCURATE HISTORY REGARDING HIS FAMILY AND SITUATION. NOTED WEAKNESS TO LEFT SIDE OF HIS BODY. HIS RIGHT SIDE HAS GOOD MUSCLE STRENGTH. PT WAS ABLE TO ASSIST ME IN REPOSITIONING AND PULLING HIMSELF UP IN BED. PT HAS BEEN INCONTINENT OF BOWELS, BUT CAN USE THE URINAL AT TIMES TO MAINTAIN CONTINENCE OF BLADDER. PT STATED THAT HE HAS A GIRLFRIEND NAMED GLYNN AND SHE TAKES GREAT CARE OF HIM. HE STATED THAT HE HAS A LOT TO LIVE FOR. I ALLOWED HIM TO VENTILATE FEELINGS AND OFFERED PSYCHOLOGICAL SUPPORT. ASSURED PT THAT I WOULD TAKE EXCELLENT CARE OF HIM TODAY. HE VERBALIZED THAT HE GETS ANXIOUS WHEN HE HAS TROUBLE GETTING HELP QUICKLY. CALL LIGHT WITHIN REACH. WILL MONITOR PT CLOSELY AND ATTEND TO NEEDS.
[2022-05-06] MEDS: CLOPIDOGREL BISULFATE 75 MG TABLET PO SCH (10:22)
[2022-05-06] MEDS: ASPIRIN 81 MG TABLET(ECOTRIN) PO SCH (10:22)
[2022-05-06] MEDS: NACL 0.9% 1,000 ML IV SCH (11:35)
[2022-05-06 12:00] VITALS: BP_SYST 132
[2022-05-06 16:00] VITALS: BP_SYST 141
--- NOTE | 2022-05-06 19:40 | NUR ---
PATIENT HAS REQUIRED A LOT OF TOTAL CARE TODAY WITH BED CHANGES X 2 AND ASSISTANCE REPOSITIONING. PATIENT HAS A POOR APPETITE. PT'S IV WAS OUT UPON THE START OF MY SHIFT AND HE REFUSED TO ALLOW ME TO PLACE ONE. PT TEACHING DONE ON THE CONCERN FOR HYPOGLYCEMIC DUE TO POOR PO INTAKE AND NO IV. GLUCOSE LEVELS HAVE BEEN WNL THIS SHIFT. PT HAS NO DIFFICULTY SWALLOWING, BUT STATES HE DOES NOT HAVE MUCH OF AN APPETITE. I SPOKE WITH PT'S GIRLFRIEN GLYNN BRIEFLY THIS MORNING AND AGAIN THIS PM. PT HAD VERBALIZED TO HER THAT NO ONE WAS ATTENDING TO HIM. I EXPLAINED TO HER I HAD BEEN IN PT'S ROOM ABOUT 45 MINUTES WHEN SHE CALLED, AND I HAD BEEN IN HIS ROOM ABOUT AN HOUR WHEN SHE CALLED TO THIS AM WHILE I WAS IN THE ROOM. I EXPLAINED TO HER THAT THE PT IS FORGETFUL AND A BIT ANXIOUS AT TIME. I REASSURED HER THAT PT HAD BEEN TAKEN CARE OF THROUGHOUT THE SHIFT. PT C/O PERINEAL DISCOMFORT- A SKIN BARRIER APPLIED TO SKIN AFTER INCONTINENT CARE RENDERED. GLYNN STATED THAT SHE AND THE PT'S DAUGHTER WANTS TO TAKE THE PT HOME AND NOT A PSYCH FACILITY- SHE WANTS OUTPATIENT PSYCHOTHERAPY. I ASKED HER IF SHE THOUGHT SHE COULD SAFELY CARE FOR HIM AND SHE SAID YES. SHE MENTIONED THAT SHE HAS A HOSPITAL BED AT HOME AND THAT SHE AND THE PT'S DAUGHTER CAN CARE FOR HIM. SHE WANTS TO SPEAK WITH THE PSYCHIATRIST WHO EVALUATED THE PT.
[2022-05-06 20:00] VITALS: BP_SYST 136
[2022-05-06] MEDS: lisinopriL 5 MG TABLET PO SCH (21:50)
[2022-05-06] MEDS: ATORVASTATIN 20 MG TABLET PO SCH (21:50)
[2022-05-07] VITALS: BP_SYST 149
[2022-05-07] MEDS: NACL 0.9% 1,000 ML IV SCH ×2 (00:55→14:15)
--- NOTE | 2022-05-07 01:33 | NUR ---
Incontinence care Pt alert, awake, incontinent of large BM, pericare provided and linens changed. Lotion applied to L. back rash. Pt grateful. Call light within reach. To monitor.
--- NOTE | 2022-05-07 06:32 | NUR ---
Closing notes/BS checked 103 Pt alert, awake, watching TV, no s/s distress noted. BS checked 103. Pt incontinent of BM, pericare and linen changed. No IV access. Bed low, locked, siderails up x4, alarm on. Call light within reach. Safety maintained. To endorse to AM nurse.
[2022-05-07 08:00] VITALS: BP_SYST 136
--- NOTE | 2022-05-07 08:28 | NUR ---
SPOKE TO Spoke to Dr Vela, informed him that the patient's PCR came back negative. stated to continue isolation precautions for now.
[2022-05-07] MEDS: ASPIRIN 81 MG TABLET(ECOTRIN) PO SCH (09:34)
[2022-05-07] MEDS: CLOPIDOGREL BISULFATE 75 MG TABLET PO SCH (09:34)
--- NOTE | 2022-05-07 10:43 | NUR ---
AND DAUGHTER CAME TO SEE PATIENT, FAMILY EDUCATED THEY ARE NOT ABLE TO GO INTO ROOM DUE TO CONTINUED COVID PRECAUTIONS. DR. LEES WITH FAMILY AND DR. LEES HAS STATED WILL BE PLACED FOR DISCHARGE PENDING TRANSPORT BEING ARRANGED.
[2022-05-07] MEDS ORDERED: PARO-63 PO (11:05)
[2022-05-07 12:00] VITALS: BP_SYST 140
--- NOTE | 2022-05-07 15:07 | NUR ---
SPOKE TO REGARDING DISCHARGE TRANSPORT Spoke with , Charlotte, and informed her that per manager case management Marilou, the family is responsible for picking up the patient. Family states they need transport to take the patient home. stated she would call the insurance company to try and arrange transport.
--- NOTE | 2022-05-07 16:14 | NUR ---
TRANSPORT Spoke with Ghazala at [facility] ([phone]), to arrange transport for the patient home. Reference #[id number]. Awaiting call back with pickup time. Addendum: 05/07/22 at 1737 by Grazyna Armenta LVN Referred to [facility] for transport Spoke to Tammie, awaiting call back regarding transport confirmation. [phone]
[2022-05-07 16:47] VITALS: BP_SYST 138
--- NOTE | 2022-05-07 18:47 | NUR ---
[facility] Patient is scheduled for pickup at 2200 with [facility] transport [phone]
[2022-05-07 19:51] VITALS: BP_SYST 135
--- NOTE | 2022-05-07 21:00 | NUR ---
Phoned GLYNN JETT & UPDATED REGARDING D/C HOME FOR 0 .
[2022-05-07] MEDS: ATORVASTATIN 20 MG TABLET PO SCH (21:13)
[2022-05-07 21:14] VITALS: BP_SYST 135
[2022-05-07] MEDS: lisinopriL 5 MG TABLET PO SCH (21:14)
--- NOTE | 2022-05-07 23:09 | NUR ---
PATIENT D/C HOME VIA BLS TRANSPORT ALL PERSONAL BELONGINGS SENT W/ PATIENT ORDERS CARRIED OUT .
--- NOTE | 2022-05-08 08:52 | NUR ---
PHYSICAL THERAPY CO-SIGN The Physical Therapy Progress Notes documented by Beck Tender have been reviewed. Reviewed/Co-Signed by: Tre Juares Documentation Done by: CHRISTINA BOOTH PTA Addendum: 05/08/22 at 0853 by Tre Juares PT Amended: Links added.
== END 2022-05-07 22:48 | disposition home or self-care (01) | DRG 751 ==
LOC: SED 18:28 → SMU 05-01 20:17 → SIC 05-02 21:48 → SMU 05-04 14:56
PROVIDERS: ADMIT Preventive Medicine Preventive Medicine/Occupational Environmental Medicine; ATTEND Preventive Medicine Preventive Medicine/Occupational Environmental Medicine
DX: F32.2 Major depressive disorder, single episode, severe without psychotic features (principal); N17.0 Acute kidney failure with tubular necrosis; U07.1 COVID-19; E87.1 Hypo-osmolality and hyponatremia; E44.1 Mild protein-calorie malnutrition; I69.354 Hemiplegia and hemiparesis following cerebral infarction affecting left non-dominant side; E11.22 Type 2 diabetes mellitus with diabetic chronic kidney disease; D72.829 Elevated white blood cell count, unspecified; N17.9 Acute kidney failure, unspecified; R45.851 Suicidal ideations; E86.0 Dehydration; E78.5 Hyperlipidemia, unspecified; E87.6 Hypokalemia; F32.9 Major depressive disorder, single episode, unspecified; I12.9 Hypertensive chronic kidney disease with stage 1 through stage 4 chronic kidney disease, or unspecified chronic kidney disease; I25.10 Atherosclerotic heart disease of native coronary artery without angina pectoris; E11.65 Type 2 diabetes mellitus with hyperglycemia; E66.9 Obesity, unspecified; N18.2 Chronic kidney disease, stage 2 (mild); Z93.3 Colostomy status; Z68.36 Body mass index [BMI] 36.0-36.9, adult
CPT/HCPCS: 36415; 71045; 80048; 80053; 82962; 83735; 84100; 85025; 85651-TC; 86140; 87040; 92610-GN; 93005; 96372; 96374; 97110-GP; 97112-GP; 97163-GP; 97530-GP; 99285; C9113; G0480; G0481; G0482; J0780; J1200; J1630; J1815; J2001; J2060; J2405; J2765; J3480; U0003